=== PATIENT | female | born 1985 | race African-American/Black ===

== ENCOUNTER 2017-08-11 03:03 | Emergency (ER) | payer OTHER ==
[2017-08-11] MEDS ORDERED: Adacel (T-DAP) 0.5 ML VIAL ONE (03:17)
[2017-08-11] MEDS ORDERED: Amoxicillin/Potassium Clav 875 MG TAB ONE (03:27)
[2017-08-11] MEDS ORDERED: Ketorolac Tromethamine 60 MG/2 ML VIAL ONE (03:27)
[2017-08-11] MEDS ORDERED: Lidocaine 1% w/Epinephrine 1:200K 30 ML VIAL ONE (03:53)
== END 2017-08-11 04:29 | disposition home or self-care (01) ==
LOC: ERS 03:03
DX: S41.112A Laceration without foreign body of left upper arm, initial encounter (principal); F17.210 Nicotine dependence, cigarettes, uncomplicated; W26.0XXA Contact with knife, initial encounter
CPT/HCPCS: 12002; 90471; 90715; 96372; J1885

== ENCOUNTER 2019-05-09 15:24 | Emergency (ER) | payer OTHER ==
[2019-05-09 16:19] LABS: #Eosinphils 0.2 thou/uL (0.0-0.7); #Lymphocytes 1.9 thou/uL (1.20-3.40); #Monocytes 0.6 thou/uL (0.11-0.59); #Neutrophils 10.2 thou/uL (1.40-6.50); %Eosinophils 1.3 % (0.0-10.0); %Lymphocytes 14.9 % (21.0-51.0); %Monocytes 4.7 % (0.0-10.0); Hemoglobin 13.6 g/dL (12.0-16.0); Mean Corpuscular HGB CONC 34.8 g/dL (32.0-36.0); Mean Corpuscular Hemoglobin 30.1 pg (27.0-31.0); Mean Corpuscular Volume 86.6 fL (78.0-98.0); Mean Platelet Volume 9.5 fL (7.4-10.4); Platelet Count 189 thou/uL (130-400); RBC Distribution Width 12.6 % (11.5-14.5); Red Blood Cell (RBC) Count 4.53 mill/uL (4.20-5.40); White Blood Cell (WBC) Count 12.9 thou/uL (4.8-10.8)
[2019-05-09] MEDS ORDERED: Ondansetron PF 4 MG/2 ML Vial ONE (16:30)
[2019-05-09 16:39] LABS: ALT (SGPT) 9 U/L (8-55); AST (SGOT) 13 U/L (5-34); Alkaline Phosphatase 55 U/L (40-150); Anion Gap 12 mmol/L (10-20); BUN (Urea Nitrogen) 7 mg/dL (7.0-18.7); Bilirubin, Total 1.2 mg/dL (0.2-1.2); Calc. Creatinine Clearance 0 mL/min (70-130); Calcium 9.2 mg/dL (7.8-10.44); Carbon Dioxide 20 mmol/L (22-29); Chloride 105 mmol/L (98-107); Estimated GFR-MDRD Greater than 90; Globulin 2.8 g/dL (2.4-3.5); Glucose 112 mg/dL (70-105); Lipase 6 U/L (8-78); Potassium 3.3 mmol/L (3.5-5.1); Protein, Total 6.8 g/dL (6.0-8.3); Sodium 134 mmol/L (136-145)
[2019-05-09 16:57] LABS: BHCG - Serum Negative (NEGATIVE); Pregs Control Background? CLEAR/WHITE (CLR/WHITE); Pregs Control Bar Appear? YES (CONTROL BAR)
[2019-05-09 17:22] LABS: Bilirubin Negative (Negative); Blood, Urine 2+ (Negative); Clarity Clear (Clear); Glucose, Urine (Dipstick) Normal (Negative); Leukocyte 500 Leu/uL (Negative); Mucous/LPF 2+ LPF (<2+); Nitrite Negative (Negative); Protein, Urine (Dipstick) 20 mg/dL (Neg-Trace); Urobilinogen Normal mg/dL (Less than 2); WBC/HPF 21-50 HPF (0-3)
[2019-05-09 17:27] LABS: Bacteria/HPF 2+ HPF (None Seen)
[2019-05-09] MEDS ORDERED: Ketorolac Tromethamine 30 MG/ML VIAL ONE (17:28)
[2019-05-09] MEDS ORDERED: cefTRIAXone\\ROCEPHIN 1 GM VIAL ONE (18:33)
== END 2019-05-09 19:00 | disposition home or self-care (01) ==
LOC: ERS 15:24
DX: N94.6 Dysmenorrhea, unspecified (principal); N39.0 Urinary tract infection, site not specified; F17.210 Nicotine dependence, cigarettes, uncomplicated
CPT/HCPCS: 36415; 80053; 81003; 81015; 83690; 84703; 85025; 87086; 96361; 96365; 96375; J0696; J1885; J2405

== ENCOUNTER 2019-08-11 01:33 | Emergency (ER) | payer OTHER ==
[2019-08-11] MEDS ORDERED: Fentanyl 100 MCG/2 ML VIAL ONE (01:38)
[2019-08-11] MEDS ORDERED: Lorazepam 2 MG/ML VIAL ONE (01:45)
[2019-08-11] MEDS ORDERED: Proparacaine 0.5% Opth 15 ML BOT ONE (02:26)
[2019-08-11 02:32] LABS: #Basophils 0.1 thou/uL (0.0-0.2); #Eosinphils 0.1 thou/uL (0.0-0.7); #Lymphocytes 3.6 thou/uL (1.20-3.40); #Neutrophils 11.6 thou/uL (1.40-6.50); %Basophils 0.4 % (0.0-1.0); %Eosinophils 0.6 % (0.0-10.0); %Lymphocytes 21.9 % (21.0-51.0); %Monocytes 6.1 % (0.0-10.0); Hemoglobin 13.1 g/dL (12.0-16.0); Mean Corpuscular HGB CONC 33.7 g/dL (32.0-36.0); Mean Corpuscular Hemoglobin 29.8 pg (27.0-31.0); Mean Corpuscular Volume 88.6 fL (78.0-98.0); Mean Platelet Volume 9.2 fL (7.4-10.4); Platelet Count 260 thou/uL (130-400); RBC Distribution Width 13.8 % (11.5-14.5); Red Blood Cell (RBC) Count 4.39 mill/uL (4.20-5.40); White Blood Cell (WBC) Count 16.3 thou/uL (4.8-10.8)
[2019-08-11 02:36] LABS: BHCG - Serum Negative (NEGATIVE); Pregs Control Background? CLEAR/WHITE (CLR/WHITE); Pregs Control Bar Appear? YES (CONTROL BAR)
[2019-08-11 02:37] LABS: Bacteria/HPF 1+ HPF (None Seen); Bilirubin Negative (Negative); Blood, Urine Trace (Negative); Clarity Clear (Clear); Glucose, Urine (Dipstick) Normal (Negative); Leukocyte 250 Leu/uL (Negative); Nitrite Negative (Negative); Protein, Urine (Dipstick) Negative (Neg-Trace); RBC/HPF 0-3 HPF (0-3); Squamous Epithelial 0-3 HPF (0-3); Urobilinogen Normal mg/dL (Less than 2)
[2019-08-11 02:42] LABS: Alcohol 66 mg/dL (Less than 10); Salicylate Less than 8.0 mg/dL (15.0-30.0)
[2019-08-11 02:44] LABS: ALT (SGPT) 18 U/L (8-55); AST (SGOT) 32 U/L (5-34); Albumin 4.4 g/dL (3.5-5.0); Alkaline Phosphatase 56 U/L (40-110); Anion Gap 15 mmol/L (10-20); BUN (Urea Nitrogen) 7 mg/dL (7.0-18.7); Bilirubin, Total 0.4 mg/dL (0.2-1.2); Calc. Creatinine Clearance 0 mL/min (70-130); Calcium 9.3 mg/dL (7.8-10.44); Carbon Dioxide 20 mmol/L (22-29); Chloride 106 mmol/L (98-107); Estimated GFR-MDRD Greater than 90; Globulin 2.9 g/dL (2.4-3.5); Glucose 105 mg/dL (70-105); Lipase 14 U/L (8-78); Potassium 3.6 mmol/L (3.5-5.1); Protein, Total 7.3 g/dL (6.0-8.3); Sodium 137 mmol/L (136-145)
[2019-08-11] MEDS ORDERED: Erythromycin Base 0.5% Oint 1 GM TUBE ONE (03:39)
[2019-08-11] MEDS ORDERED: Bacitracin 1 PK ONE (03:39)
[2019-08-11] MEDS ORDERED: Lidocaine 1% w/Epinephrine 1:100K 20 ML VIAL ONE (03:46)
--- NOTE | 2019-08-11 07:44 | RAD ---
XR Chest 1 View Portable History: Trauma Comparison: None. Findings: Lungs are clear. No pneumothorax or effusion. Cardiac silhouette and mediastinal contours a re within normal limits. No acute osseous abnormality. Impression: No acute intrathoracic abnormality.
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
--- NOTE | 2019-08-11 07:45 | RAD ---
XR Elbow Lt 4 View STANDARD History: Trauma Comparison: None. Findings: No significant joint effusion. No acute displaced fracture or malalignment. Impression: No acute osseous abnormality.
--- NOTE | 2019-08-11 07:47 | RAD ---
XR Tib Fib Rt Leg 2 View History: Trauma Comparison: None. Findings: Mild pretibial soft tissue swelling. No acute osseous abnormality. Impression: Pretibial soft tissue edema may reflect contusion.
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
== END 2019-08-11 05:10 | disposition home or self-care (01) ==
LOC: ERS 01:33 → EEVIPCON 01:33 → ERS 05:10
DX: S41.112A Laceration without foreign body of left upper arm, initial encounter (principal); S20.211A Contusion of right front wall of thorax, initial encounter; S20.212A Contusion of left front wall of thorax, initial encounter; S60.222A Contusion of left hand, initial encounter; S80.11XA Contusion of right lower leg, initial encounter; S00.83XA Contusion of other part of head, initial encounter; F17.210 Nicotine dependence, cigarettes, uncomplicated; Y04.0XXA Assault by unarmed brawl or fight, initial encounter
CPT/HCPCS: 12001; 29125; 70450; 70486; 71045; 72125; 80053; 80307; 81003; 81015; 83690; 84703; 85025; 96374; 96375; J2060; J3010

== ENCOUNTER 2020-06-21 08:50 | Day surgery (SDC) | payer OTHER ==
[2020-06-21] MEDS ORDERED: Rocuronium Bromide 10 MG/ML (10ML VIAL) ONE (09:07)
[2020-06-21] MEDS ORDERED: Succinylcholine Chloride 20 MG/ML 10 ml SYRINGE FS ONE (09:07)
[2020-06-21] MEDS ORDERED: PROPOFOL 200 MG/20 ML VIAL ONE (09:07)
[2020-06-21] MEDS ORDERED: Lidocaine 1% PF 5 ML VIAL ONE (09:07)
[2020-06-21] MEDS ORDERED: Ondansetron PF 4 MG/2 ML Vial ONE (09:17)
[2020-06-21] MEDS ORDERED: Morphine 4 MG/ML VIAL ONE (09:17)
[2020-06-21 09:56] LABS: #Basophils 0.1 thou/uL (0.0-0.2); #Eosinphils 0.2 thou/uL (0.0-0.7); #Lymphocytes 1.8 thou/uL (1.20-3.40); #Monocytes 0.6 thou/uL (0.11-0.59); #Neutrophils 6.4 thou/uL (1.40-6.50); %Basophils 0.6 % (0.0-1.0); %Eosinophils 2.1 % (0.0-10.0); %Lymphocytes 20.1 % (21.0-51.0); %Neutrophils 70.2 % (42.0-75.0); Hemoglobin 13.9 g/dL (12.0-16.0); Mean Corpuscular HGB CONC 33.4 g/dL (32.0-36.0); Mean Platelet Volume 9.2 fL (7.4-10.4); Platelet Count 155 thou/uL (130-400); RBC Distribution Width 12.9 % (11.5-14.5); Red Blood Cell (RBC) Count 4.79 mill/uL (4.20-5.40); White Blood Cell (WBC) Count 9.1 thou/uL (4.8-10.8)
[2020-06-21 10:08] LABS: BHCG - Serum Negative (NEGATIVE); Pregs Control Background? CLEAR/WHITE (CLR/WHITE); Pregs Control Bar Appear? YES (CONTROL BAR)
[2020-06-21 10:23] LABS: ALT (SGPT) 7 U/L (8-55); AST (SGOT) 12 U/L (5-34); Albumin 3.9 g/dL (3.5-5.0); Alkaline Phosphatase 36 U/L (40-110); Anion Gap 12 mmol/L (10-20); BUN (Urea Nitrogen) 11 mg/dL (7.0-18.7); Bilirubin, Total 0.5 mg/dL (0.2-1.2); Calc. Creatinine Clearance 0 mL/min (70-130); Calcium 8.3 mg/dL (7.8-10.44); Carbon Dioxide 19 mmol/L (22-29); Chloride 110 mmol/L (98-107); Estimated GFR-MDRD 61; Globulin 2.5 g/dL (2.4-3.5); Glucose 91 mg/dL (70-105); Lipase 15 U/L (8-78); Potassium 3.8 mmol/L (3.5-5.1); Protein, Total 6.4 g/dL (6.0-8.3); Sodium 137 mmol/L (136-145)
--- NOTE | 2020-06-21 10:39 | CT ---
CT OF THE ABDOMEN AND PELVIS WITH IV CONTRAST INDICATION: Crampy periumbilical abdominal pain COMPARISON: None FINDINGS: ABDOMEN: Lung bases: Clear Liver: No focal lesion. Gallbladder: Surgically absent Pancreas: Normal. Adrenal glands: Normal. Spleen: Normal. Kidneys and ureters: Normal. No hydronephrosis. Vasculature: Normal. Lymph nodes:No lymphadenopathy. Free fluid in abdomen:No free fluid is evident. PELVIS: Small and large bowel: There is a supraumbilical abdominal wall hernia containing a loop of small bow el inducing mild partial obstructive changes to the upstream jejunum. There is some reticulation of the fat in this hernia sac suspicious for mild strangulation. The hernia mouth measures 1.7 x 2.4 cm in its greatest craniocaudad and mediolateral dimensions. Appendix:Normal Bladder: Normal. Rectal and perirectal soft tissues:Normal. Reproductive structures: There is a 5.2 x 3.3 cm complex cystic lesion involving the left adnexa. Free fluid in pelvis: No free fluid is evident. Lymphadenopathy pelvis: No lymphadenopathy is evident. Osseous structures: No acute osseous abnormality. No destructive osteolytic or osteoblastic lesion i s identified. There is scattered degenerative and osteoarthritic changes. Soft tissues:Normal. IMPRESSION: 1. Supraumbilical abdominal wall hernia containing a loop of small bowel with mild partial obstructiv e changes to the upstream jejunum and mild inflammatory reticulation of the adjacent herniated fat. Findings are suspicious for mildly strangulate or hernia. Surgical consultation is recommended. 2. Complex cystic lesion left adnexa may reflect a complex cyst. Further evaluation with a nonemergen t pelvic ultrasound is recommended.
[2020-06-21] MEDS ORDERED: Fentanyl 100 MCG/2 ML VIAL ONE ×4 (11:02→14:02)
[2020-06-21] MEDS ORDERED: Ketorolac Tromethamine 30 MG/ML VIAL ONE (11:04)
[2020-06-21] MEDS ORDERED: Piperacillin/Tazobactam 3.375 GM VIAL ONE (11:14)
--- NOTE | 2020-06-21 11:39 | HP ---
HISTORY OF PRESENT ILLNESS: Sari Carter is a 35-year-old black female, on disability for dyslexia. She has had an umbilical hernia that is bothering her for the past year. On this occasion, it became incarcerated. She presents to the emergency room. CAT scan reveals incarcerated small bowel with bowel obstruction. She has suffered nausea and vomiting. Plan is to repair this emergently as her small bowel is incarcerated with risk of strangulation. COVID is pending. There has been no symptoms or exposure to COVID. ALLERGIES: NONE. SOCIAL HISTORY: Tobacco, one pack per day. Alcohol, socially. PAST SURGICAL HISTORY: Laparoscopic cholecystectomy. PAST MEDICAL HISTORY: Noncontributory. FAMILY HISTORY: Noncontributory. REVIEW OF SYSTEMS: Ten-point noncontributory. PHYSICAL EXAMINATION: VITAL SIGNS: Blood pressure 140/74, respiratory rate 18, heart rate 86. HEAD, EARS, EYES, NOSE AND THROAT: Unremarkable. LUNGS: Clear to auscultation. No wheezing. CARDIAC: Regular rate and rhythm. ABDOMEN: Soft, mildly obese. Incarcerated supraumbilical hernia, unable to reduce, very tender. EXTREMITIES: Unremarkable. IMAGING STUDIES: CAT scan of the abdomen and pelvis, incarcerated umbilical hernia with small bowel obstruction. LABORATORY DATA: White count 9 and hemoglobin 13. Basic metabolic profile is normal. ASSESSMENT AND PLAN: 1. Incarcerated umbilical hernia with small bowel. Emergently repair this in the operating room. Resect bowel as indicated. COVID pending and we will not wait on the results. Risks and benefits were explained. She consents. 2. Tobacco use. Encourage cessation. 3. Alcohol socially. 4. Disability for dyslexia. Job ID: [id number]
[2020-06-21 12:11] LABS: SARS-CoV-2 NAA Rapid Test Not Detected (NotDetected)
[2020-06-21] MEDS ORDERED: Lidocaine 1% w/Epinephrine 1:100K 20 ML VIAL ONE (12:28)
[2020-06-21] MEDS ORDERED: Bupivacaine PF 0.5% 30 ML VIAL ONE (12:28)
[2020-06-21] MEDS ORDERED: Iopamidol-370 76% 500 ML 1 ML ONE (12:52)
[2020-06-21] MEDS ORDERED: hydrALAZINE 20 MG/ML VIAL ONE (14:02)
--- NOTE | 2020-06-21 15:13 | OP ---
DATE OF PROCEDURE: 06/21/2020 PREOPERATIVE DIAGNOSIS: Incarcerated umbilical/incisional hernia with small bowel obstruction by CAT scan and small bowel involved. POSTOPERATIVE DIAGNOSIS: Incarcerated umbilical/incisional hernia with small bowel obstruction by CAT scan and small bowel involved. PROCEDURE PERFORMED: Repair of umbilical area hernia/incisional hernia incarcerated without mesh. ANESTHESIA: General, local 0.5% Marcaine 30 mL mixed with 1% Xylocaine with epinephrine 20 mL, total volume used. DESCRIPTION OF PROCEDURE: The patient was taken to the operating room, where under general anesthesia, Ospina catheter placed at the beginning of the procedure and removed the end. At the time during the prep and anesthetic, the hernia was spontaneously reduced. Infraumbilical incision was made, carried down through skin and subcutaneous tissue, and the fascial defect noted below the umbilicus and another fascial defect, larger noted above this. There was incarcerated omentum, preperitoneal fat taken down with cautery, identifying the fascial edges, closed laterally overlapping the fascia with interrupted sutures of #0 PDS pop offs. Good hemostasis noted. Subcutaneous tissue was approximated with 3-0 Monocryl, skin with subdermal 4-0 Monocryl, and Breda glue applied. Local anesthetic infiltrated about the skin and subcutaneous tissue about the operative site. The patient tolerated the procedure well. Job ID: [id number]
== END 2020-06-21 15:40 | disposition home or self-care (01) ==
LOC: ERS 08:50 → SDC 10:52
PROVIDERS: ATTEND Specialist
PROC: 0WQF0ZZ Repair Abdominal Wall, Open Approach (ICD-10-PCS; principal; 2020-06-21)
DX: K42.0 Umbilical hernia with obstruction, without gangrene (principal); K56.600 Partial intestinal obstruction, unspecified as to cause; R48.0 Dyslexia and alexia; Z20.828 Contact with and (suspected) exposure to other viral communicable diseases
CPT/HCPCS: 36415; 74177; 80053; 83690; 84703; 85025; 96361; 96374; 96375; J0360; J1885; J2270; J2405; J2543; J2704; J3010; J7620; Q9967; S0020; U0002

== ENCOUNTER 2020-06-25 12:00 | Emergency (ER) | payer OTHER ==
[2020-06-25 12:53] LABS: #Eosinphils 0.3 thou/uL (0.0-0.7); #Monocytes 0.4 thou/uL (0.11-0.59); #Neutrophils 4.4 thou/uL (1.40-6.50); %Basophils 0.7 % (0.0-1.0); %Eosinophils 4.2 % (0.0-10.0); %Lymphocytes 28.3 % (21.0-51.0); %Monocytes 4.9 % (0.0-10.0); Hemoglobin 13.1 g/dL (12.0-16.0); Mean Corpuscular HGB CONC 33.8 g/dL (32.0-36.0); Mean Corpuscular Hemoglobin 30.2 pg (27.0-31.0); Mean Corpuscular Volume 89.4 fL (78.0-98.0); Mean Platelet Volume 9.1 fL (7.4-10.4); Platelet Count 171 thou/uL (130-400); RBC Distribution Width 12.8 % (11.5-14.5); Red Blood Cell (RBC) Count 4.32 mill/uL (4.20-5.40); White Blood Cell (WBC) Count 7.1 thou/uL (4.8-10.8)
== END 2020-06-25 13:57 | disposition home or self-care (01) ==
LOC: ERS 12:00
DX: Z48.89 Encounter for other specified surgical aftercare (principal); F17.210 Nicotine dependence, cigarettes, uncomplicated
CPT/HCPCS: 36415; 85025; 99283

== ENCOUNTER 2022-03-08 10:30 | Emergency (ER) | payer OTHER | END 2022-03-08 11:14 | LOC: EEVIPCON 10:30 → ERS 10:30 | DX: K42.9 Umbilical hernia without obstruction or gangrene (principal); F17.210 Nicotine dependence, cigarettes, uncomplicated | CPT/HCPCS: 99283 ==

== ENCOUNTER 2025-07-17 11:33 | Emergency (ER) | payer OTHER ==
[2025-07-17] MEDS ORDERED: Acetaminophen 500 MG TAB ONE (12:27)
[2025-07-17 12:28] LABS: #Basophils Less than 0.03 10x3/uL (0.0-0.2); #Eosinophils 0.09 10x3/uL (0.0-0.7); #Monocytes 0.79 10x3/uL (0.11-0.59); #Neutrophils 10.98 10x3/uL (1.40-6.50); %Basophils 0.1 % (0.0-1.0); %Eosinophils 0.7 % (0.0-10.0); %Lymphocytes 13.4 % (21.0-51.0); %Monocytes 5.7 % (0.0-10.0); %Neutrophils 79.9 % (42.0-75.0); Hematocrit 35.7 % (36.0-47.0); Hemoglobin 12.3 g/dL (12.0-16.0); Mean Corpuscular Hemoglobin 27.4 pg (27.0-31.0); Mean Corpuscular Volume 79.5 fL (78.0-98.0); Platelet Count 228 10x3/uL (130-400); Red Blood Cell (RBC) Count 4.49 mill/uL (4.20-5.40); White Blood Cell (WBC) Count 13.75 10x3/uL (4.8-10.8)
[2025-07-17] MEDS ORDERED: Nitroglycerin 0.4 MG TAB 1 EACH ONE (12:41)
[2025-07-17 12:46] LABS: ALT (SGPT) 11 U/L (Less than 34); AST (SGOT) 38 U/L (11-34); Albumin 4.2 g/dL (3.1-4.5); Alkaline Phosphatase 53 U/L (40-110); Anion Gap 16 mmol/L (10-20); BUN (Urea Nitrogen) 6 mg/dL (7.0-18.7); Bilirubin, Total 0.6 mg/dL (0.3-1.2); Calc. Creatinine Clearance 0 mL/min (70-130); Calcium 9.4 mg/dL (7.8-10.44); Carbon Dioxide 22 mmol/L (22-29); Chloride 109 mmol/L (98-107); Globulin 3.3 g/dL (2.4-3.5); Glucose 92 mg/dL (70-105); Potassium 3.9 mmol/L (3.5-5.1); Sodium 143 mmol/L (136-145)
[2025-07-17] MEDS ORDERED: Iopamidol 370 76% 100 ML VIAL ONE (14:20)
== END 2025-07-17 15:13 | disposition home or self-care (01) ==
LOC: ERS 11:33
DX: J20.9 Acute bronchitis, unspecified (principal); I10 Essential (primary) hypertension; E11.9 Type 2 diabetes mellitus without complications; F17.290 Nicotine dependence, other tobacco product, uncomplicated; Z75.3 Unavailability and inaccessibility of health-care facilities; Z55.6 Problems related to health literacy; Z79.899 Other long term (current) drug therapy; Z79.84 Long term (current) use of oral hypoglycemic drugs
CPT/HCPCS: 71045; 71275; 80053; 83605; 83880; 84484; 85025; 85379; 87040; 87428; 93005; 94760; 96374; J2919; Q9967